=== PATIENT | male | born 1990 | race Caucasian/White ===

== ENCOUNTER 2019-09-08 20:02 | Emergency (ER) | payer MEDICAID, SELFPAY ==
[2019-09-08 20:03] VITALS: BP 126/67; PULSE 73; RESP 16; TEMP 36.7; O2SAT 97; BMI 30.2
[2019-09-08 20:26] VITALS: BP 115/62; PULSE 74; RESP 16; O2SAT 100
[2019-09-08] MEDS: Morphine 4 MG/ML Syringe IV (21:00)
[2019-09-08] MEDS: Ondansetron 4 MG/2 ML Vial IV (21:01)
[2019-09-08] MEDS: 0.9% Normal Saline 1,000 ML 1000 ML IV (21:01)
[2019-09-08] MEDS: Dicyclomine 20 MG/2 ML Vial IM (21:01)
[2019-09-08 21:05] LABS: Absolute Lymphocyte Count 1.15 X10^3/uL (0.83-4.51); Absolute Neutrophil Count 6.8 X10^3/uL (2.0-7.7); Basophil# 0.03 X10^3/uL; Basophil% 0.4 % (0-1); Eosinophil# 0.03 X10^3/uL; Eosinophils% 0.4 % (0-5); Hematocrit 47.2 % (40-54); Hemoglobin 15.8 g/dL (13.0-16.5); Lymphocyte # 1.15 X10^3/ul (4.0); Lymphocyte % 13.4 % (19-41); Mean Corp Hgb Conc 33.5 g/dL (32-36); Mean Corpuscular Hgb 27.5 pg (27.0-32.0); Mean Corpuscular Volume 82.1 fL (80-94); Mean Platelet Vol. 11.6 fl (6.2-12.0); Monocyte# 0.51 X10^3/uL; NRBC Flagged by Analyzer 0 % (0-5); Neutrophil # 6.81 X10^3/uL (2.7-7.7); Neutrophil % 79.4 % (47-70); Platelet Count 195 K/mm3 (150-450); RBC Distribution Width CV 12.6 % (11.6-14.6); RBC Distribution Width SD 37.8 fl (35.1-43.9); Red Blood Count 5.75 M/mm3 (4.6-6.2); White Blood Count 8.6 K/mm3 (4.4-11.0)
[2019-09-08 21:07] LABS: Anion Gap 6 (5-15); BUN 17 mg/dL (7-18); BUN/Creat Ratio 16.7 RATIO (10-20); Calcium,Total 9.2 mg/dL (8.5-10.1); Chloride 108 mmol/L (98-107); Creatinine, Serum 1.02 mg/dL (0.70-1.30); EST Glomerular Filtration Rate 93 mL/min (>60); Est Glom Filt Rate - Afr Amer 113 mL/min (>60); Estimated Creatinine Clearance 109.75 ml/min; Glucose 108 mg/dL (74-106); Sodium Level 139 mmol/L (136-145)
[2019-09-08 22:31] VITALS: BP 116/70; BP 122/57; BP 122/68; PULSE 57; PULSE 61; PULSE 70
--- NOTE | 2019-09-08 22:42 | ED.DCSUM_ITS ---
- ER Visit Summary Date of Service: 09/08/19 Chief Complaint: [Nausea, vomiting, and diarrhea] History of Present Illness: The patient is a 28 M [to the emergency department complaint of symptoms that started initially last evening when he started not feeling well. His vomiting and diarrhea just started this morning at 5 AM. Patient states he is been going frequently. Patient had 2 syncopal episodes once while on the toilet and then another episode while he was in the hallway fell backwards. Patient denies any injury. Patient states that all his coworkers are sick with similar type illness. Patient states that he ate some cookies that somebody made and everybody ate them. He otherwise does not think he is eaten any unusual or undercooked foods. He denies recent travel. He denies recent antibiotic usage. He has had no fever.] Physical Examination: [HEENT-PERRLA, EOMI. Cranial nerves II through XII grossly intact. TMs clear. Mucous membranes moist. No adenopathy. Cardiovascular-regular rate and rhythm without murmur or ectopy Lungs-clear to auscultation, chest wall stable without crepitus or subcu emphysema Abdomen-normoactive bowel sounds, soft. Patient has diffuse tenderness to palpation. Patient has a mild guarding. There is no rebound, rigidity, or pedal signs. Extremities-intact ?4, normal range of motion, normal pulses, atraumatic] Test Results: [CBC with differential obtained showed a normal white of 8.6, hemoglobin 15.8, hematocrit 47, plates 195. Chemistries unremarkable.] Emergency Department Course and Treatment: [Given a liter of the same fluid bolus. Patient given Zofran 4 mg IV. Patient given morphine 4 mg IV. Patient given Bentyl 20 mg IM. I did order stool for enteric pathogens however those results will not be available till tomorrow.] Treatment Plan: [Given a prescription for Zofran and Bentyl. Patient advised to follow-up with his primary care physician within next 3 to 5 days. Patient advised to return if persistent vomiting, diarrhea, dehydration, worsening pain, or conditions worsen anyway.] Disposition: [Discharged home in stable condition.] Impression: [Viral gastroenteritis] This note was generated with [employer] dictation software. It may contain incorrect words, spelling, and punctuation that were not noted in review of the chart prior to signing ED Disposition - Plan for ED Patient: Referrals: Allyson Segura MD [Primary Care Provider] -
--- NOTE | 2019-09-08 22:45 | ED.DEP ---
ED Disposition - Plan for ED Patient: Instructions: GASTROENTERITIS, Viral (8y-Adult) Prescriptions: Dicyclomine HCl [Bentyl] 20 mg PO TIDAC #20 cap Prescription Printed Ondansetron [Zofran Odt] 4 mg PO Q8H PRN PRN #10 tab PRN Reason: Nausea Prescription Printed Referrals: Allyson Segura MD [Primary Care Provider] - 3-5 Days
[2019-09-08 23:12] VITALS: BP 131/41; PULSE 64; RESP 18; O2SAT 97
== END 2019-09-08 23:13 | disposition home or self-care (01) ==
PROVIDERS: Emergency Provider Emergency Medicine; Family Provider Family Medicine; PCP Family Medicine
DX: A08.4 Viral intestinal infection, unspecified (principal); R55 Syncope and collapse
CPT/HCPCS: 80048; 85025; 96361; 96372; 96374; 96375; 99284; J7030; A4216; J2405

== ENCOUNTER → 2021-01-30 15:44 | Outpatient (CLI) | payer OTHER, SELFPAY | PROVIDERS: PCP Family Medicine; Visit Provider Family Medicine | DX: U07.1 COVID-19 (principal) | CPT/HCPCS: 87635; U0002 ==

== ENCOUNTER 2024-10-22 11:23 | Day surgery (SDC) | payer OTHER, SELFPAY ==
[2024-10-22] VITALS (9 sets, daily range): BP systolic 118–131; BP diastolic 71–89; PULSE 61–85; RESP 16–18; TEMP 36.3–37.2; O2SAT 99–100; BMI 26.1
--- NOTE | 2024-10-22 11:53 | PCM.HP.BLA ---
History and Physical Date of Admission: 10/22/24 Date of Service: 10/06/24 MR#:[id number] Acct:[id number] Name: ZAINA TELLEZ Rep #:[id number] : 1990 Provider:Dr. Sneha Baltazar MD Age/Sex: 33/M Location: [facility] Status: Signed Intake Vital Signs 07/07/2415:16 Height 5 ft 9 in Weight: 193 lb BMI 28.5 BP 113/70 Blood Pressure Location Rt brachial Position Sitting Respiration 17 Pulse 79 Pulse Source Monitor Pulse Oximetry (%) 100 Oxygen Delivery Method room air Intake Visit Reasons: RECTAL BLEEDING Chief Complaint: rectal bleeding Allergies No Known Allergies Allergy (Verified 07/15/24 15:46) PFSH Family History Mother Breast cancer Diabetes Hypertension Social History Smoking Status: Former smoker alcohol intake: never substance use type: does not use HPI HPI HPI: 33-year-old male presents for follow-up for anal fissure. Patient was previously seen back in June was given diltiazem ointment with hydrocortisone and lidocaine suppositories. Patient did have symptom relief with that. Patient states only improved for 2 to 3 weeks and then he did stop using the ointment and stated that he started to have the burning sensation back more regularly recently did try some natural healing well which he states did work for a little bit. Patient denies any further rectal bleeding. Patient states he has been doing sitz bath and has been doing the diltiazem and suppositories for the last week with no real change in symptoms. Exam Const General: cooperative, healthy appearing, comfortable and no acute distress HENMT Head: normocephalic and atraumatic Neck Neck: supple Resp Effort & Inspection: normal respiratory effort Cardio Rate: regular rate GI Inspection: non-distended Palpation: soft and hernia Other: Rectal inspection?posterior anal fissure, no FRANK done at this time Skin General: no rashes or lesions noted Neuro General: CN's II-XI intact bilaterally Extrem General: normal to inspection Psych Mental Status: mental status grossly normal Attitude: cooperative Assessment and Plan Assessment and Plan (1) Anal fissure: Status: Acute Plan Discussed with patient we will plan for lateral sphincterotomy including risk not limited to bleeding, infection, incontinence, anesthesia patient no further questions this time. Patient was agreeable with plan. Sneha Baltazar M.D. Pager: [phone] [facility] [address] [place] [address], [address] [place] [address] Office: [phone] Coding Level of Care Code Off vis,est,level 3 Diagnoses Anal fissure K60.2 10/07/24 1043 <Electronically signed by Sneha Baltazar MD> Date Sneha Baltazar MD
--- NOTE | 2024-10-22 12:02 | PRE.ANES_ITS ---
ASA Classification* ASA Classification ASA Classification: 2 Assessment & Plan Anesthesia* Anesthesia Assessment Anesthesia Assessment: Discussed sedation and/or anesthesia options, risks, benefits, and alternatives with patient/parents/legal guardian/POA. Questions invited. The patient/parents/legal guardian/POA seems to understand and agrees to proceed with anesthesia plan. Reviewed the physical assessment, medical history, allergy history and patient home medications list prior to surgery/procedure/anesthetic and documented any changes. Performed airway and anesthesia risk assessments. Anesthesia Type Anesthesia Type: MAC (GA bkup) Anesthesia Focused Assessment* Temperature: 98.9 F Pulse Rate: 85 Blood Pressure: 125/89 Respiratory Rate: 16 Pulse Ox: 100 Airway Assessment Mouth opens: >3 cm Mallampati Score: II Focused Labs Anesthesia Preop lab: CBC WBC 8.6 K/mm3 (4.4-11.0) 09/08/19 20:34 RBC 5.75 M/mm3 (4.6-6.2) 09/08/19 20:34 Hgb 15.8 g/dL (13.0-16.5) 09/08/19 20:34 Hct 47.2 % (40-54) 09/08/19 20:34 Plt Count 195 K/mm3 (150-450) 09/08/19 20:34 CHEMISTRY Potassium 4.0 mmol/L (3.5-5.1) 09/08/19 20:34 Sodium 139 mmol/L (136-145) 09/08/19 20:34 BUN 17 mg/dL (7-18) 09/08/19 20:34 Creatinine 1.02 mg/dL (0.70-1.30) 09/08/19 20:34 Glucose 108 mg/dL (74-106) H 09/08/19 20:34 COAG Pre-Assessment Diagnosis/Proposed Procedure Planned Operative Procedure(s): LATERAL SPINCTEROTOMY Anesthesia History Anesthesia History - gambreler helper: Anesthesia History - gambreler helper Hx Hospitalization No 10/12/24 12:14 Any Problems With Anesthesia No 10/12/24 12:14 Cholinesterase deficiency No 10/12/24 12:14 You/Your Family Experience No 10/12/24 12:14 fever (hyperthermia) with Relationship Recent Exposure to Contagious No 10/22/24 11:45 Disease Does patient have nerve No 10/12/24 12:14 stimulator Patient instructed to have device shut off --Does patient have Pacemaker No 10/22/24 11:45 or ICD? When Was Last Pacemaker Check QUESTION #4 FULL TEXT: You/Your Family Experience fever (hyperthermia) with Anesthesia Last Oral Intake Last Oral intake: Last Oral Intake NPO since 22:00 10/22/24 11:45 Meds taken in AM with sips of water? Meds patient instructed to take am of surgery PONV PONV - gambreler helper: PONV - gambreler helper Female No 10/12/24 12:14 HX of Motion Sickness No 10/12/24 12:14 HX of N/V After Surgery No 10/12/24 12:14 Non-Smoker No 10/12/24 12:14 Duration of Surgery greater Yes 10/12/24 12:14 than 60 minutes Number of Risk Factors 1 10/12/24 12:14 PONV Score Low Risk 10/12/24 12:14 Height & Weight Height & Weight: Anesthesia: Height & Weight Height 5 ft 10 in 10/22/24 11:45 Weight: 82.6 kg 10/22/24 11:45 Body Mass Index (BMI) 26.1 10/22/24 11:45 Respiratory Assessment Respiratory Assessment - gambreler helper: Respiratory Tract Infection Hx - gambreler helper Hx Respiratory Tract Infection No 10/12/24 12:14 STOP Sleep Apnea STOP Sleep Apnea - gambreler helper: STOP Sleep Apnea - gambreler helper Hx Hypertension No 10/12/24 12:14 Hx Sleep Apnea No 10/12/24 12:14 CPAP BIPAP Do you snore loudly (louder No 10/12/24 12:14 than talking or can be heard Do you often feel tired/ No 10/12/24 12:14 fatigued/ sleepy during daytime? Has anyone observed you stop No 10/12/24 12:14 breathing during sleep? STOP Results Negative 10/12/24 12:14 QUESTION #5 FULL TEXT : Do you snore loudly (louder than talking or can be heard through closed doors)? Tobacco Use History Tobacco Use History - gambreler helper: Tobacco Use History - gambreler helper Tobacco Use Smoking Status Current some day smoker 10/12/24 12:14 Hx Tobacco Use Yes 10/12/24 12:14 Years Smoking Packs Smoked per Day Smoking Cessation Date was within the last 15 years Hx Smoking Cessation Date Hx Smoking Cessation Counseling Hematologic Medial History Hematologic Hx - gambreler helper: Hematologic Medical Hx - can labeler Hx of Blood Transfusion No 10/12/24 12:14 Hx of Transfusion in last 3 No 10/12/24 12:14 Months Date of Last Transfusion (if within last 3 months) Ever experience any problems No 10/12/24 12:14 with transfusion(s)? Specify any problems Hx of Preganancy in last 3 N/A 10/12/24 12:14 Months Nurse Filling Out Transfusion DSCHRIBER 10/12/24 12:14 & Questions: Date: 10/12/24 10/12/24 12:14 Time: 12:16 10/12/24 12:14 Patient unable to answer at this time (ie. confused, unrespo /Reproduction History /Reproductive History - gambreler helper: /Reproductive Hx- gambreler helper Hx Now No 10/12/24 12:14 Gestational Age (in weeks): EDC: Hx Hx Para Hx Section SAB No 10/12/24 12:14 PFSH Medical History Loss of hearing Alcohol use Migraine headache Chewing tobacco use Home Medications ?Medication ?Instructions ?Recorded ?Last Taken ?Type Hydrocortisone 2.5%/lidocaine 5% #30 ea 07/07/24 Unknown Rx suppository (cmpd) Diltiazem 2% / Lidocaine 5% #1 ea 07/20/24 Unknown Rx ointment (compound) cholecalciferol (vitamin D3) 25 25 mcg PO DAILY 10/12/24 Unknown History mcg (1,000 unit) capsule (Vitamin D3) Allergy/AdvReac Type Severity Reaction Status Date / Time No Known Allergies Allergy Verified 10/22/24 11:43 Family History Mother Breast cancer Diabetes Hypertension Surgical History Hx of colonoscopy Hx of wisdom tooth extraction Social History Smoking Status: Current some day smoker tobacco type: smokeless tobacco alcohol intake: never substance use type: does not use Review of Systems (Anesthesia) ROS Narrative System reviewed and no additional complaints, except as documented.
--- NOTE | 2024-10-22 12:56 | PCM.OPRPT ---
Operative Report (Standard) Operative Information Date of Procedure: 10/22/24 Pre-Operative Diagnosis: Anal fissure Post-Operative Diagnosis: Same Surgery/Procedure Performed: Left lateral sphincterotomy supply officer: Yes Silverware Assembler: Javier Cortes Tasks completed by registered sales assistant: Retracting Type of Anesthesia: General/Supplemental RN Documented Start/Stop Times: Operation Date: 10/22/24 14:00 Case Time Into Pre-Op 10/22/24 11:36 Anesthesia Start 10/22/24 12:21 Into Room 10/22/24 12:21 Out of Pre-Op 10/22/24 12:21 Procedure Start 10/22/24 12:39 Procedure End 10/22/24 12:55 Anesthesia End 10/22/24 13:07 Out of Room 10/22/24 13:07 Into Recovery 10/22/24 13:14 Into Phase II Recovery 10/22/24 13:38 Out of Recovery 10/22/24 13:38 Out of Phase II 10/22/24 14:39 Procedure Start Time: 12:39 Procedure Stop Time: 12:55 Select all DRAINS/GRAFTS/IMPLANTS that apply: None Special Medications: none Estimated Blood Loss: < 10 cc Specimen collected: No Description of surgery: The patient was brought into the operating room and general anesthesia was induced. He was placed in lithotomy position. A timeout was completed verifying correct patient, procedure, site, position, and special equipment prior to beginning the procedure. Perineum was prepared prepped and draped in standard sterile fashion. Local anesthesia was injected as a perianal nerve block-0.5% Marcaine -- total of 20 mL throughout the case. Anus carefully dilated. Small Hill-Forman retractor was introduced. His posterior fissure appeared to be healing. Incision was made with electrocautery?cut function at the left lateral location the internal sphincter was identified and from anal mucosa and external sphincter. Approximately a third of the sphincter was cut using Metzenbaum scissors. Following the hemostasis the incision was closed with the interrupted sutures of 2-0 chromic. A large Surgifoam with dibucaine was placed in the anus. A gauze pad tucked between the gluteal folds. The patient tolerated procedure well and was extubated and taken to the postanesthesia care unit in stable condition. Surgical Findings: anal fissure healing Complications Complications: No
--- NOTE | 2024-10-22 12:57 | DCINST_ITS ---
Discharge Instructions Procedure Rectal Surgery Diet Discharge Diet: No restrictions Activity Discharge Activity: Return to Normal Activity and May Not Drive (while you are taking narcotic pain medications. Do not drive, work with heavy equipment or s ign legal documents for 24 hours after your surgery.) Additional Activity Instructions:: Be aware that pain medications may cause nausea. You should typically eat light foods as you take your pain medications. Pain medications may also cause constipation, have stool softeners and MiraLAX on hand. Dressing / Incision Additional Dressing/Incision Instructions:: Anesthetic plug was placed in the anal area, try not to expel for 24-[address] dibucaine ointment on the perianal area as needed. Sitz baths twice daily and after bowel movements. Follow Up Care Please Follow Up With: Sneha Baltazar MD When: Please call [phone] to schedule a follow up appointment to be seen 14 days after surgery. After 5:00 PM and on the weekends call [phone] with any concerns. Test Results: Test results from this visit will be discussed in further detail at your follow- up appointment, if applicable. Discharge Plan Admission Attending Provider: Sneha Baltazar Primary Care Provider: Allyson Segura Instructions Print Language: Moldovan Discharge Orders/Prescriptions Prescriptions: New oxycodone 5 mg capsule 5 mg PO Q6H PRN (Reason: pain) 3 Days Qty: 10 0RF Continued (DME) Hydrocortisone 2.5%/lidocaine 5% suppository (cmpd) Suppository See Rx Instructions .Route Qty: 30 1RF Rx Instructions: insert rectally two times a day cholecalciferol (vitamin D3) [Vitamin D3] 25 mcg (1,000 unit) capsule 25 mcg PO DAILY (DME) Diltiazem 2% / Lidocaine 5% ointment (compound) Ointment See Rx Instructions .Route Qty: 1 1RF Rx Instructions: apply rectally twice daily Referrals / Follow Up: Allyson Segura MD [Primary Care Provider] - Disposition Disposition (needs filled in before D/C Order can be placed): Home, Self Care
[2024-10-22] MEDS: Dibucaine 30 GM Tube 1 APPLIC (12:59)
[2024-10-22] MEDS: Bupivacaine 0.5% PF 10 ML VIAL (12:59)
--- NOTE | 2024-10-22 13:15 | PCM.POST.ANE ---
Anesthesia: Postop Eval I Current Vital Signs Temperature: 97.5 F Pulse Rate: 70 Blood Pressure: 127/83 Respiratory Rate: 18 Pulse Ox: 100 Oxygen Delivery Method: Room Air Assessment Airway patent: Yes Spontaneous unlabored respirations: Yes Mental status: Awake and Calm nausea: Yes Vomiting: No Anesthesia Complication: No Fluid Hydration Crystalloid volume administer (ml): 800 Total IV fluid infused: 800 Progress Note Post-operative progress note: pt states nausea; medicated before arrival to PACU Anesthesia document: Postop Eval 1 completed: Yes
--- NOTE | 2024-10-23 10:49 | POSTOPAN2_ITS ---
Anesthesia Postop Eval I Sum Postop Eval Completion status Anesthesia document: Postop Eval 1 completed: Yes Anesthesia Postop Eval I Summary Anesthesia Postop Eval I Summary: Anesthesia Postop Eval I: Assessment Summary Airway patent Yes 10/22/24 13:16 MACHINE TOOL TECHNICIAN INSTRUCTOR.PEPITOOBTj Spontaneous unlabored Yes 10/22/24 13:16 MACHINE TOOL TECHNICIAN INSTRUCTOR.RAMIRO respirations Mental status Awake,Calm 10/22/24 13:16 MACHINE TOOL TECHNICIAN INSTRUCTOR.PEPITOOBTj nausea Yes 10/22/24 13:16 MACHINE TOOL TECHNICIAN INSTRUCTOR.PEPITOOBTj Vomiting No 10/22/24 13:16 MACHINE TOOL TECHNICIAN INSTRUCTOR.PEPITOOBTj Anesthesia Postop Eval I: Fluid Summary Crystalloid volume administer 800 10/22/24 13:16 MACHINE TOOL TECHNICIAN INSTRUCTOR.PEPITOOBY (ml) Colloids volume administered ( ml) Blood Product volume administered (ml) Total IV fluid infused 800 10/22/24 13:16 MACHINE TOOL TECHNICIAN INSTRUCTOR.RAMIRO Anesthesia Postop Eval I: Summary Notes Anesthesia Complication No 10/22/24 13:16 MACHINE TOOL TECHNICIAN INSTRUCTOR.RAMIRO Anesthesia Complication Comment: Post-operative progress note pt states nausea; 10/22/24 13:16 MACHINE TOOL TECHNICIAN INSTRUCTOR.RAMIRO medicated before arrival to PACU Anesthesia: Postop Eval II Evaluation Mental status: Awake and Calm Pain Level: 2 nausea: No Vomiting: No Complications Anesthesia Complication: No
--- NOTE | 2024-10-23 10:49 | PCM.POSTANE2 ---
Anesthesia Postop Eval I Sum Postop Eval Completion status Anesthesia document: Postop Eval 1 completed: Yes Anesthesia Postop Eval I Summary Anesthesia Postop Eval I Summary: Anesthesia Postop Eval I: Assessment Summary Airway patent Yes 10/22/24 13:16 LIQUID FLAVOR COMPOUNDER.PEPITOOBTj Spontaneous unlabored Yes 10/22/24 13:16 LIQUID FLAVOR COMPOUNDER.RAMIRO respirations Mental status Awake,Calm 10/22/24 13:16 LIQUID FLAVOR COMPOUNDER.PEPITOOBTj nausea Yes 10/22/24 13:16 LIQUID FLAVOR COMPOUNDER.PEPITOOBTj Vomiting No 10/22/24 13:16 LIQUID FLAVOR COMPOUNDER.PEPITOOBTj Anesthesia Postop Eval I: Fluid Summary Crystalloid volume administer 800 10/22/24 13:16 LIQUID FLAVOR COMPOUNDER.PEPITOOBY (ml) Colloids volume administered ( ml) Blood Product volume administered (ml) Total IV fluid infused 800 10/22/24 13:16 LIQUID FLAVOR COMPOUNDER.RAMIRO Anesthesia Postop Eval I: Summary Notes Anesthesia Complication No 10/22/24 13:16 LIQUID FLAVOR COMPOUNDER.RAMIRO Anesthesia Complication Comment: Post-operative progress note pt states nausea; 10/22/24 13:16 LIQUID FLAVOR COMPOUNDER.RAMIRO medicated before arrival to PACU Anesthesia: Postop Eval II Evaluation Mental status: Awake and Calm Pain Level: 2 nausea: No Vomiting: No Complications Anesthesia Complication: No
== END 2024-10-22 14:39 | disposition home or self-care (01) ==
LOC: SDC 11:23 → AC 11:25
PROVIDERS: PCP Family Medicine; Referring Provider Surgery; Visit Provider Surgery
PROC: (CPT 46080; principal; 2024-10-22 13:45)
DX: K60.2 Anal fissure, unspecified (principal); Z87.891 Personal history of nicotine dependence
CPT/HCPCS: 46080; 00902; A4216; J2405